=== PATIENT | male | born 1955 | race Caucasian/White ===

== ENCOUNTER 2023-03-13 10:36 | Day surgery (SDC) | payer MEDICARE, SELFPAY ==
[2023-02-19 09:31] VITALS: BMI 27.9
[2023-02-26 09:22] VITALS: BMI 27.7
--- NOTE | 2023-03-12 15:05 | P.HP_ITS ---
History of Present Illness History of Present Illness Consent: Risks, benefits, and alternatives have been discussed and questions answered. Patient agrees to proceed with procedure. Chief complaint: Neoplasm Screening Narrative: Otoniel Villagomez is a 67 year old male who was referred for colon cancer screening. [facility] Past Medical History Medical History Acquired hypothyroidism Chronic low back pain GERD (gastroesophageal reflux disease) HLD (hyperlipidemia) IFG (impaired fasting glucose) Overweight (BMI 25.0-29.9) Family History Family History Mother Family history of diabetes mellitus in first degree relative Father Family history of lung cancer Social History Social History Smoking packs per day: 1 Smoking cigarettes per day: 20.0 Years smoked: 20 Smoking pack-years: 20.00 Smoking status: Former smoker Tobacco type: cigarettes Alcohol intake: never Substance use: never Substance use type: does not use Living arrangements: with family Occupation/Education: retired Gender identity (if verbalized by the patient): Male Sexual Orientation (if Verbalized by the Patient): Straight or Heterosexual Spiritual care concerns: No Meds Home Medications and Allergies Home Medications Medication Instructions Recorded Confirmed Type levothyroxine 150 mcg tablet See Rx Instructions .Route 05/25/22 03/13/23 Rx .COMPLEX #90 tabs diclofenac sodium 1 % topical gel 2 g topical QID #300 grams 06/01/22 03/13/23 Rx pantoprazole 40 mg tablet,delayed 40 mg PO QAM #90 tabs 07/09/22 03/13/23 Rx release desonide 0.05 % topical cream 1 applic topical BID PRN skin 07/13/22 03/13/23 Rx irritation #60 grams atorvastatin 10 mg tablet See Rx Instructions .Route 01/21/23 03/13/23 Rx .COMPLEX #90 tabs cholecalciferol (vitamin D3) 125 125 mcg PO DAILY 02/26/23 03/13/23 History mcg (5,000 unit) tablet (Vitamin D3) Allergies Allergy/AdvReac Type Severity Reaction Status Date / Time codeine Allergy Severe Stopped Verified 03/13/23 10:56 Breathing Assessment and Plan Assessment and plan (1) Colon cancer screening: Code(s): Z12.11 - Encounter for screening for malignant neoplasm of colon Status: Acute Assessment and Plan: Colonoscopy with possible biopsy or polypectomy or cautery or injection of substances.
--- NOTE | 2023-03-13 10:40 | WPDANESEPPF ---
Anes - Initial Pre Proc Eval Procedure: Operation Date: 03/13/23 12:00 Proposed Procedures p Screening Colonoscopy - Mao Cardoza MD Date/Time: 03/13/23 10:40 Surgeon: Mao Cardoza MD Pre Op Diagnosis: Neoplasm Screening Patient Data Age: 67 Gender: M Height: 1.68 m Weight: 78 kg Allergies Allergy/AdvReac Type Severity Reaction Status Date / Time codeine Allergy Severe Stopped Verified 03/13/23 10:56 Breathing Home Medications Medication Instructions Recorded Confirmed Type levothyroxine 150 mcg tablet See Rx Instructions .Route 05/25/22 03/13/23 Rx .COMPLEX #90 tabs diclofenac sodium 1 % topical gel 2 g topical QID #300 grams 06/01/22 03/13/23 Rx pantoprazole 40 mg tablet,delayed 40 mg PO QAM #90 tabs 07/09/22 03/13/23 Rx release desonide 0.05 % topical cream 1 applic topical BID PRN skin 07/13/22 03/13/23 Rx irritation #60 grams atorvastatin 10 mg tablet See Rx Instructions .Route 01/21/23 03/13/23 Rx .COMPLEX #90 tabs cholecalciferol (vitamin D3) 125 125 mcg PO DAILY 02/26/23 03/13/23 History mcg (5,000 unit) tablet (Vitamin D3) Patient hx anesthesia problems: none Family hx anesthesia problems: none Results Review: All pre-operative results and documents have been reviewed as part of the pre-operative evaluation. [facility] Past Medical History Medical History (Updated 03/13/23 @ 10:41 by Jus Olsen MD) Acquired hypothyroidism Chronic low back pain GERD (gastroesophageal reflux disease) HLD (hyperlipidemia) IFG (impaired fasting glucose) Overweight (BMI 25.0-29.9) Family History Family History Mother Family history of diabetes mellitus in first degree relative Father Family history of lung cancer Social History Social History Smoking packs per day: 1 Smoking cigarettes per day: 20.0 Years smoked: 20 Smoking pack-years: 20.00 Smoking status: Former smoker Tobacco type: cigarettes Alcohol intake: never Substance use: never Substance use type: does not use Living arrangements: with family Occupation/Education: retired Gender identity (if verbalized by the patient): Male Sexual Orientation (if Verbalized by the Patient): Straight or Heterosexual Spiritual care concerns: No Anes - Eval Final PreProcedure Day of Procedure 03/13/23 10:40 Patient weight: overweight Heart: regular rate and rhythm Lungs: clear to auscultation and normal air movement Airway: Mallampati scale class II Neurological: alert and oriented Last oral intake: >/= 8 hours ASA classification: II Emergent: no Anesthetic plan: proceed Anesthesia type and monitoring: general GIVS Results Review: All pre-operative results and documents have been reviewed as part of the pre-operative evaluation. Informed Consent: The patient's anesthetic plan and its attendant risks and benefits were discussed with the patient/family/POA. Questions were solicited and answers provided to the satisfaction of the patient/family/POA.
[2023-03-13 10:45] VITALS: BP 125/88; PULSE 54; RESP 16; TEMP 37.1; O2SAT 99
[2023-03-13] MEDS: LACTATED RINGERS 1,000 ML 150 ML IV CONT (11:05)
[2023-03-13] MEDS: SIMETHICONE ORAL SUSPENSION 20 MG/0.3 ML 30 ML BOTTLE 0.6 ML IRRIGATION (12:07)
[2023-03-13 12:15] VITALS: BP 120/61; PULSE 51; RESP 14; O2SAT 97
[2023-03-13 12:33] VITALS: BP 108/78; PULSE 42; RESP 16; O2SAT 97
--- NOTE | 2023-03-13 15:10 | WPDANESPN ---
Anes - Prog Note Post-Op Date/Time: 03/13/23 15:10 Cardiovascular status: normal Respiratory status: normal Airway patency: baseline Mental status: baseline Post-Op hydration status: normal Vital Signs: Last Vital Signs Temp 37.1 C 03/13/23 10:45 Pulse 42 L 03/13/23 12:33 Resp 16 03/13/23 12:33 BP 108/78 03/13/23 12:33 Pulse Ox 97 03/13/23 12:33 O2 Del Method Room Air 03/13/23 12:33 Pain Score (VAS): 0 I/O: Intake & Output 03/12/23 03/13/23 03/13/23 23:59 07:59 15:59 Intake Total 500 Balance 500 Post-procedural complaints: none Patient Feedback: Patient satisfied with anesthetic care.
== END 2023-03-13 12:54 | disposition home or self-care (01) ==
PROVIDERS: PCP Family Medicine; Visit Provider Internal Medicine Gastroenterology
PROC: 0DJD8ZZ Inspection of Lower Intestinal Tract, Via Natural or Artificial Opening Endoscopic (ICD-10-PCS; CPT 45378; principal; 2023-03-13 12:00)
DX: Z12.11 Encounter for screening for malignant neoplasm of colon (principal)
CPT/HCPCS: 45378

== ENCOUNTER 2024-05-02 03:01 | Emergency (ER) | payer MEDICARE, SELFPAY ==
--- NOTE | ~2024-05-02 | XR_ITS ---
XR chest 1V portable DATE: 05/02/2024 03:23 INDICATION: Bilateral lower chest pain TECHNIQUE: Portable upright AP chest on 05/02/2024 at 0316 hours COMPARISON: March 02, 2014 PA and lateral chest FINDINGS: Approximately 6.4 x 7.2 cm left upper lobe pneumatocele, increased in size compared to 3.5 x 4 cm on March 02, 2014. No pulmonary infiltrate or consolidation, pleural effusion or pulmonary vascular congestion or pneumo thorax is detected. Normal heart size. No hilar or mediastinal enlargement. Included skeletal structures are unremarkable other than osteopenia. IMPRESSION: Increased size of left upper lobe pneumatocele since March 02, 2024 No active cardiopulmonary disease Reviewed, dictated and finalized at location A.
--- NOTE | 2024-05-02 03:02 | ECG_ITS ---
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 Measurements Intervals [place] Rate: 40 P: 48 OH: 138 QRS: -8 QRSD: 97 T: 58 QT: 459 QTc: 378 Interpretive Statements SINUS BRADYCARDIA NONSPECIFIC ST & T-WAVE ABNORMALITY No previous ECG available for comparison Electronically Signed On 05-02-2024 14:15:13 CDT by Bay Baeza M.D.
[2024-05-02 03:04] VITALS: BP 155/85; PULSE 44; RESP 15; TEMP 36.6; O2SAT 97
[2024-05-02] MEDS: ASPIRIN 81 MG CHEWABLE TABLET 324 MG PO (03:17)
[2024-05-02] MEDS: NITROGLYCERIN SL 0.4 MG TABLET SUBLINGUAL (03:24)
[2024-05-02 03:27] VITALS: O2SAT 97
[2024-05-02 03:32] LABS: Basophils Percent Auto 0.5 % (0.2-1.2); Eosinophils Absolute Auto 0.2 K/mm3 (0-0.3); Eosinophils Percent Auto 3.4 % (0-4.4); Hematocrit 43.6 % (42.0-52.0); Hemoglobin 14.5 g/dL (14.0-18.0); Immature Granulocyte Absolute 0.02 K/mm3 (0.00-0.031); Immature Granulocyte Percent A 0.3 % (0-0.5); Lymphocytes Absolute Auto 2.17 K/mm3 (0.9-3.2); Lymphocytes Percent Auto 35.5 % (18.3-44.2); Mean Corpuscular HGB Conc 33.3 g/dl (32-36); Mean Corpuscular Hemoglobin 31.7 pg (26-34); Mean Corpuscular Volume 95.2 fl (80-100); Mean Platelet Volume 11.2 fl (7.4-10.4); Monocytes Absolute Auto 0.5 K/mm3 (0.1-0.6); Monocytes Percent Auto 8.5 % (2.6-8.5); Neutrophils Absolute Auto 3.2 K/mm3 (1.3-6.7); Neutrophils Percent Auto 51.8 % (45.5-73.1); Platelet Count Result 195 k/mm3 (150-375); Red Blood Count 4.58 M/mm3 (4.6-6.20); Red Cell Distribution Width 12.2 % (11.5-14.5); White Blood Count 6.1 K/mm3 (4.5-10.0)
[2024-05-02 03:33] VITALS: BP 108/78; PULSE 49; RESP 15; O2SAT 97
[2024-05-02 03:41] LABS: Alanine Aminotransferase 24 U/L (6-50); Albumin Level 4.3 g/dL (3.5-5.1); Alkaline Phosphatase 67 U/L (38-126); Anion Gap 5 mmol/L (4-12); Aspartate Amino Transferase 29 U/L (17-59); Blood Urea Nitrogen 13 mg/dL (9-20); Calcium 9.1 mg/dL (8.4-10.2); Carbon Dioxide 29 mmol/L (22-30); Chloride 106 mmol/L (98-107); Estimated CRCL calculation 55 ml/min; Estimated Glomerular Filt Rate > 60; Glucose 107 mg/dL (65-110); Lipase 135 U/L (23-300); Potassium 3.7 mmol/L (3.4-5.0); Sodium 140 mmol/L (137-145)
[2024-05-02 03:43] LABS: INR 1.1; Partial Thromboplastin Time 26.7 Seconds (22.3-36.8); Prothrombin Time 14.2 Seconds (11.1-14.7)
[2024-05-02 03:53] LABS: Troponin I < 0.012 ng/mL (0.000-0.034)
--- NOTE | 2024-05-02 04:10 | ED.GENADULT ---
HPI - General Adult General Chief complaint: Chest Pain Stated complaint: chest pain Time Seen by Provider: 05/02/24 03:08 History of Present Illness HPI narrative: patient is 68-year-old gentleman who presents emergency department with chief complaint of chest pain. Patient reports that this morning he had an episode of pain started in his chest patient reports came across his chest and went to his back patient reports that he has had no nausea no vomiting did report that he got a little sweaty when this occurred the patient reports no radiation to the arm or in the neck patient reports that he has history of bradycardia his heart rate runs in the 40s and 50s. Related Data Home Medications Medication Instructions Recorded Confirmed cholecalciferol (vitamin D3) 125 125 mcg PO DAILY 02/26/23 03/13/23 mcg (5,000 unit) tablet (Vitamin D3) Allergies Allergy/AdvReac Type Severity Reaction Status Date / Time codeine Allergy Severe Stopped Verified 05/02/24 03:32 Breathing Review of Systems Review of Systems: A 10 system review of systems was completed on the patient and is negative except for what is stated in the HPI. Nursing and ancillary documentation was reviewed. [facility] Past Medical History Medical History Acquired hypothyroidism Chronic low back pain GERD (gastroesophageal reflux disease) HLD (hyperlipidemia) IFG (impaired fasting glucose) Overweight (BMI 25.0-29.9) Family History Family History Mother Family history of diabetes mellitus in first degree relative Father Family history of lung cancer Social History Social History Smoking packs per day: 1 Smoking cigarettes per day: 20.0 Years smoked: 20 Smoking pack-years: 20.00 Smoking status: Former smoker Tobacco type: cigarettes Alcohol intake: never Substance use: never Substance use type: does not use Living arrangements: with family Occupation/Education: retired Gender identity (if verbalized by the patient): Male Sexual Orientation (if Verbalized by the Patient): Straight or Heterosexual Spiritual care concerns: No Exam Narrative: GENERAL: Well-appearing, well-nourished, and in no acute distress. HEAD: Normocephalic, atraumatic. EYES: PERRLA and EOMI. ENT: Nares clear, no rhinorrhea or epistaxis. Mucous membranes moist. NECK: Supple. CHEST: Clear to auscultation. No respiratory distress. HEART: Regular rate and rhythm. No murmur heard. Normal peripheral pulses. ABDOMEN: Soft, nontender, nondistended, normal active bowel sounds. EXTREMITIES: Normal range of motion. No edema. SKIN: Warm, dry, no rash. NEURO: No focal deficits. Alert and oriented x3. PSYCH: Normal mood and affect. Course Vital Signs Vital signs: Vital Signs Temperature 36.6 C 05/02/24 03:04 Pulse Rate 44 L 05/02/24 03:04 Respiratory Rate 15 05/02/24 03:04 Blood Pressure 155/85 H 05/02/24 03:04 Pulse Oximetry 97 05/02/24 03:04 Oxygen Delivery Room Air 05/02/24 03:04 Temperature 36.6 C 05/02/24 03:04 Pulse Rate 42 L 05/02/24 05:03 Respiratory Rate 15 05/02/24 05:03 Blood Pressure 118/77 05/02/24 05:03 Pulse Oximetry 97 05/02/24 05:03 Oxygen Delivery Room Air 05/02/24 03:27 Medical Decision Making MDM Narrative Medical decision making narrative: differential diagnosis includes ACS, noncardiac chest pain, atypical chest pain, gastroesophageal reflux disease, musculoskeletal pain EKG showed sinus bradycardia no ST elevation or ST depression laboratory studies were obtained showed a normal CBC normal CMP initial troponin was negative repeat 3 hour troponin was negative. Chest x-ray showed no focal infiltrate Vital Signs Vital Signs: Vital Signs Temperature 36.6 C
--- NOTE | 2024-05-02 04:12 | PC.NURSE ---
Pt reported cp resolved following 1, 0.4 mg nitroglycerin tablet.
[2024-05-02 05:03] VITALS: BP 118/77; PULSE 42; RESP 15; O2SAT 97
--- NOTE | 2024-05-02 05:57 | ECG_ITS ---
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 Measurements Intervals [place] Rate: 40 P: 36 OH: 139 QRS: -9 QRSD: 96 T: 67 QT: 463 QTc: 378 Interpretive Statements SINUS BRADYCARDIA NONSPECIFIC ST & T-WAVE ABNORMALITY Compared to ECG 05/02/2024 03:12:49 NO SIGNIFICANT CHANGES Electronically Signed On 05-02-2024 14:17:25 CDT by Bay Baeza M.D.
[2024-05-02 06:27] LABS: Troponin I < 0.012 ng/mL (0.000-0.034)
[2024-05-02 06:45] VITALS: BP 112/68; PULSE 45; RESP 15; O2SAT 97
== END 2024-05-02 06:47 | disposition home or self-care (01) ==
PROVIDERS: Emergency Provider Emergency Medicine; PCP Family Medicine
DX: R07.89 Other chest pain (principal); R00.1 Bradycardia, unspecified; E03.9 Hypothyroidism, unspecified; K21.9 Gastro-esophageal reflux disease without esophagitis; M54.50 Low back pain, unspecified; G89.29 Other chronic pain; E78.5 Hyperlipidemia, unspecified
CPT/HCPCS: 36415; 71045; 80053; 83690; 84484; 85025; 85610; 85730; 93005; 99284; A9270